=== PATIENT | male | born 1960 | race African-American/Black ===

== ENCOUNTER 2017-05-16 09:14 | Day surgery (SDC) | payer OTHER, SELFPAY ==
[~2017-05-16 09:14] MED LIST: Acetaminophen/HYDROcodone 325-5 MG Tab PO PRN; Bupivacaine 0.25%/EPINEPHrine 1:200,000 10 ML SDV INJECT ONE; Bupivacaine 0.25%/EPINEPHrine 1:200,000 10 ML SDV ONE; Lactated Ringers 1,000 ML IV SCH; Lidocaine 2% 5 ML SDV ONE; Midazolam 1 MG/ML 2 ML SDV ONE; Ondansetron 4 MG/2 ML SDV ONE; Propofol 200 MG/20 ML SDV ONE; ceFAZolin 1 GM in Premix Bag 1 BAG IV ONE; fentaNYL 100 MCG/2 ML SDV ONE
--- NOTE | 2017-05-16 09:34 | PCM.PREANE ---
Preanesthetic Assessment - Anesthesia/Transfusion/Family Hx Anesthesia History: Prior Anesthesia Without Reaction Family History of Anesthesia Reaction: No Transfusion History: No Prior Transfusion(s) Intubation History: Unknown - Review of Systems General: No Symptoms Pulmonary: No Symptoms Cardiovascular: No Symptoms Gastrointestinal: No Symptoms Neurological: No Symptoms Other: Reports: None - Physical Assessment NPO Status Date: 05/15/17 NPO Status Time: 14:00 O2 Sat by Pulse Oximetry: 99 Respiratory Rate: 16 Vital Signs: Last Vital Signs Temp 36.5 C 05/16/17 09:27 Pulse 96 05/16/17 09:27 Resp 16 05/16/17 09:27 BP 133/95 H 05/16/17 09:27 Pulse Ox 99 05/16/17 09:27 Height: 1.7 m Weight: 80.739 kg ASA Class: 2 Mental Status: Alert & Oriented x3 Airway Class: Mallampati = 2 Dentition: Reports: Normal Dentition Thyro-Mental Finger Breadths: 3 Mouth Opening Finger Breadths: 3 ROM/Head Extension: Full Lungs: Clear to Auscultation, Normal Respiratory Effort Cardiovascular: Regular Rate, Regular Rhythm - Allergies Allergies/Adverse Reactions: Allergies Allergy/AdvReac Type Severity Reaction Status Date / Time No Known Allergies Allergy Verified 05/14/17 09:25 - Blood Blood Available: No - Anesthesia Plan Pre-Op Medication Ordered: None - Acknowledgements Anesthesia Type Planned: General Anesthesia Pt an Appropriate Candidate for the Planned Anesthesia: Yes Alternatives and Risks of Anesthesia Discussed w Pt/Guardian: Yes Pt/Guardian Understands and Agrees with Anesthesia Plan: Yes PreAnesthesia Questionnaire - Past Health History Medical/Surgical History: Denies Medical/Surgical History Other HEENT History: uses glasses for reading Cardiovascular History: Reports: High Cholesterol, Hypertension, [place] ('06, most likely had PTCA of one coronary artery, told he has leaky valve on the left side ) Other Cardiovascular History: no stents placed, denies chest pain and SOB Respiratory History: Reports: None Gastrointestinal History: Reports: None Genitourinary History: Reports: None Musculoskeletal History: Reports: None Neurological History: Reports: Other (See Below) Other Neuro History: states "something is wrong with spine" Psychiatric History: Reports: None Endocrine/Metabolic History: Reports: None Hematologic History: Reports: None Immunologic History: Reports: None Oncologic (Cancer) History: Reports: None Dermatologic History: Reports: None - Past Surgical History Head Surgeries/Procedures: Reports: None - SUBSTANCE USE Smoking Status *Q: Never Smoker Days Per Week of Alcohol Use: 0 Recreational Drug Use History: No - HOME MEDS Home Medications: Home Meds Aspirin [Halfprin] 81 mg PO DAILY 06/22/14 [History] Rosuvastatin [Crestor] 20 mg PO DAILY 06/22/14 [History] Candesartan/HCTZ [Atacand HCT 16-12.5 MG] 1 tab PO DAILY 07/04/14 [History] - CURRENT (IN HOUSE) MEDS Current Meds: Current Medications Hydrocodone Bitart/Acetaminophen ([place] 325-5 Mg) 1 tab PO Q4H PRN PRN Reason: Pain Lactated Ringer's (Ringers, Lactated) 1,000 mls @ 125 mls/hr IV ASDIRECTED VALDEZ Last Admin: 05/16/17 09:29 Dose: 125 mls/hr Discontinued Medications Bupivacaine HCl/Epinephrine Bitart (Marcaine 0.25%/Epinephrine 1:200,000) 20 ml INJECT ONETIME ONE Stop: 05/16/17 09:01 Bupivacaine HCl/Epinephrine Bitart (Marcaine 0.25%/Epinephrine 1:200,000) Confirm Administered Dose 10 ml .ROUTE .STK-MED ONE Stop: 05/16/17 07:33 Fentanyl (Sublimaze) Confirm Administered Dose 100 mcg .ROUTE .STK-MED ONE Stop: 05/16/17 09:04 Cefazolin Sodium/Dextrose 1 gm (/ Premix) 25 mls @ 100 mls/hr IV ONETIME ONE Stop: 05/16/17 09:14 Lidocaine (Xylocaine-Mpf 2%) Confirm Administered Dose 5 ml .ROUTE .STK-MED ONE Stop: 05/16/17 09:03 Midazolam HCl (Versed 1 Mg/Ml) Confirm Administered Dose 2 mg .ROUTE .STK-MED ONE Stop: 05/16/17 09:04 Ondansetron HCl (Zofran) Confirm Administered Dose 4 mg .ROUTE .STK-MED ONE Stop: 05/16/17 09:03 Propofol (Diprivan 20 Ml) Confirm Administered Dose 200 mg .ROUTE .STK-MED ONE Stop: 05/16/17 09:04
[2017-05-16] MEDS ORDERED: Phenylephrine/Normal Saline 100 MCG/ML 10 ML Syringe ONE (10:03)
[2017-05-16] MEDS ORDERED: Ketorolac 30 MG/ML SDV ONE (10:27)
--- NOTE | 2017-05-16 11:06 | PCM.POSTAN ---
POST ANESTHESIA ASSESSMENT - MENTAL STATUS Mental Status: Alert - RESPIRATORY Respiratory Status: Respiratory Rate WNL - CARDIOVASCULAR CV Status: Pulse Rate WNL, Blood Pressure Stable - GASTROINTESTINAL GI Status: No Symptoms - PAIN Pain Score: 0 - POST OP HYDRATION Hydration Status: Adequate & Stable - OBSERVATIONS Free Text/Narrative:: no anesthesia problems
[2017-05-16 13:10] VITALS: BP 130/81
--- NOTE | 2017-05-19 09:09 | PCM.OPNOTE ---
- General Post-Op/Procedure Note Date of Surgery/Procedure: 05/16/17 Operative Procedure(s): left cubital tunnel release Pre Op Diagnosis: left cubital tunnel syndrome Post-Op Diagnosis: Same Anesthesia Technique: General LMA Primary Surgeon: Breanna Salazar Linseed Oil Temperer: Elyse Cannon Complications: None Condition: Good
--- NOTE | 2017-05-19 14:56 | OR ---
SURGEON: SYMONE FERNANDEZ MD DATE OF PROCEDURE: 05/16/2017 PREOPERATIVE DIAGNOSIS: Left cubital tunnel syndrome, severe POSTOPERATIVE DIAGNOSIS: Left cubital tunnel syndrome, severe. PROCEDURE: Left cubital tunnel release. INDICATIONS: Mr. Ricardo is a 56-year-old gentleman with left cubital tunnel syndrome that is quite severe. 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 He does have pain in this area. Risks and benefits of cubital tunnel release to hopefully relieve the pain and possibly reconstitute some of his sensation was discussed and he was in agreement to proceed. Risks were including, but not limited to, bleeding, infection, damage to underlying or overlying structures, possible need for future interventions, possible scarring, and possible lack of improvement. He understands and wishes to proceed. PROCEDURE IN DETAIL: After informed consent was obtained and placed on the chart, the patient was brought to the operating theater and laid in the supine position. After adequate general LMA anesthesia was obtained, the area was prepped and draped, and a time-out was completed to confirm side and site. Attention was then paid to dissection of the left cubital tunnel incision. A #15 blade was used to dissect through the skin and then spreading through the subcutaneous tissues with the Littler scissors. The nerve was located just proximal to the cubital tunnel and then dissection was carried to allow release from the cubital tunnel. There was significant compression here and once adequately released, meticulous hemostasis was obtained. Dissection was carried proximally up into the intramuscular septum and distally into the flexor carpi ulnaris compression site. Once adequately released, a finger was passed distally and proximally to ensure no compression on the nerve. Minimal neurolysis was completed over areas of significant scar tissue. The nerve was sitting healthy without any signs of compression along its entire length in the cubital tunnel upon completion. Once hemostasis was obtained, the wound was closed with deep 4-0 Monocryl stitches and a running 4-0 subcuticular for the skin. It was dressed with Steri-Strips. The area was then dressed with fluffs and Ulises wrap. The patient tolerated the procedure well and all counts, needles were correct at the end of the case. FOLLOWUP INSTRUCTIONS: The patient will see us in clinic in approximately 10 days or sooner if any problems, questions, or concerns. He was given a prescription for pain control. HEGGTHE / MODL /[id number]
== END 2017-05-16 13:05 | disposition home or self-care (01) ==
LOC: MW.SDS 09:14
PROVIDERS: ATTEND Plastic Surgery
PROC: 01N40ZZ Release Ulnar Nerve, Open Approach (ICD-10-PCS; principal; 2017-05-16)
DX: G56.22 Lesion of ulnar nerve, left upper limb (principal); I25.10 Atherosclerotic heart disease of native coronary artery without angina pectoris; I10 Essential (primary) hypertension; I25.2 Old myocardial infarction; E78.00 Pure hypercholesterolemia, unspecified; Z79.82 Long term (current) use of aspirin; Z79.899 Other long term (current) drug therapy
CPT/HCPCS: 64718; J1885; J2250; J2405; J3010; J7120; 01710; J2704

== ENCOUNTER 2017-10-01 08:58 | Emergency (ER) | payer OTHER, SELFPAY ==
[2017-10-01 09:10] VITALS: BP 140/91
--- NOTE | 2017-10-01 09:50 | EDM.PDOC ---
ED HPI GENERAL MEDICAL PROBLEM - General Chief Complaint: Gastrointestinal Problem Stated Complaint: BLOODY STOOL Time Seen by Provider: 10/01/17 09:26 - History of Present Illness INITIAL COMMENTS - FREE TEXT/NARRATIVE: HISTORY AND PHYSICAL: History of present illness: Patient 56-year-old black male presents with concern of intermittent rectal bleeding primarily when he wipes since May. He denies any known bleeding diathesis he denies any significant abdominal pain denies history of diverticular disease he denies any fever chills nausea vomiting or other concern Review of systems: As per history of present illness and below otherwise all systems reviewed and negative. Past medical history: As per history of present illness and as reviewed below otherwise noncontributory. Surgical history: As per history of present illness and as reviewed below otherwise noncontributory. Social history: No reported history of drug or alcohol abuse. Family history: As per history of present illness and as reviewed below otherwise noncontributory. Physical exam: HEENT: Atraumatic, normocephalic, pupils reactive, negative for conjunctival pallor or scleral icterus, mucous membranes moist, throat clear, neck supple, nontender, trachea midline. Lungs: Clear to auscultation, breath sounds equal bilaterally, chest nontender. Heart: S1S2, regular, negative for clicks, rubs, or JVD. Abdomen: Soft, nondistended, nontender. Negative for masses or hepatosplenomegaly. Negative for costovertebral tenderness. Pelvis: Stable nontender. Genitourinary: Deferred. Rectal: Deferred. Extremities: Atraumatic, negative for cords or calf pain. Neurovascular unremarkable. Neuro: Awake, alert, oriented. Cranial nerves II through XII unremarkable. Cerebellum unremarkable. Motor and sensory unremarkable throughout. Exam nonfocal. Diagnostics: CBC CMP PT/INR CT abdomen and pelvis Therapeutics: None Impression: #1 history of lower GI bleeding Definitive disposition and diagnosis as appropriate pending reevaluation and review of above. - Related Data Allergies Allergy/AdvReac Type Severity Reaction Status Date / Time No Known Allergies Allergy Verified 10/01/17 09:06 Home Meds: Home Meds Aspirin [Halfprin] 81 mg PO DAILY 06/22/14 [History] Rosuvastatin [Crestor] 20 mg PO BEDTIME 06/22/14 [History] Candesartan/HCTZ [Atacand HCT 16-12.5 MG] 1 tab PO DAILY 07/04/14 [History] Past Medical History - Past Health History Medical/Surgical History: Denies Medical/Surgical History HEENT History: Reports: Impaired Vision Other HEENT History: uses glasses for reading Cardiovascular History: Reports: High Cholesterol, Hypertension, [place] Other Cardiovascular History: Had [place] back in 2005. Pt report high blood pressure which is controlled with medication Respiratory History: Reports: None Gastrointestinal History: Reports: None Genitourinary History: Reports: None Musculoskeletal History: Reports: None Neurological History: Reports: Other (See Below) Other Neuro History: states "something is wrong with spine" Psychiatric History: Reports: None Endocrine/Metabolic History: Reports: None Hematologic History: Reports: None Immunologic History: Reports: None Oncologic (Cancer) History: Reports: None Dermatologic History: - Past Surgical History Head Surgeries/Procedures: Reports: None Musculoskeletal Surgical History: Reports: Other (See Below) Other Musculoskeletal Surgeries/Procedures:: nerve sx on left forearm Social & Family History - Family History Family Medical History: Noncontributory - Tobacco Use Smoking Status *Q: Never Smoker - Caffeine Use Caffeine Use: Reports: Coffee, Tea - Alcohol Use Days Per Week of Alcohol Use: 0 - Recreational Drug Use Recreational Drug Use: No Drug Use in Last 12 Months: No ED ROS GENERAL - Review of Systems Review Of Systems: ROS reveals no pertinent complaints other than HPI. ED EXAM, GENERAL - Physical Exam Exam: See Below (See dictation) Course - Vital Signs Last Recorded V/S: Last Vital Signs Temp 36.5 C 10/01/17 08:58 Pulse 80 10/01/17 08:58 Resp 18 10/01/17 08:58 BP 140/91 H 10/01/17 08:58 Pulse Ox 100 10/01/17 08:58 - Orders/Labs/Meds Labs: Laboratory Tests 10/01/17 10/01/17 10/01/17 Range/Units 09:31 09:31 09:31 WBC 5.04 (4.0-11.0) K/uL RBC 4.60 (4.50-5.90) M/uL Hgb 13.6 (13.0-17.0) g/dL Hct 40.7 (38.0-50.0) % MCV 88.5 (80.0-98.0) fL MCH 29.6 (27.0-32.0) pg MCHC 33.4 (31.0-37.0) g/dL RDW Std Deviation 40.3 (28.0-62.0) fl RDW Coeff of Mare 13 (11.0-15.0) % Plt Count 198 (150-400) K/uL MPV 11.40 (7.40-12.00) fL Neut % (Auto) 25.0 L (48.0-80.0) % Lymph % (Auto) 61.5 H (16.0-40.0) % [place] % (Auto) 10.9 (0.0-15.0) % Eos % (Auto) 1.6 (0.0-7.0) % Baso % (Auto) 1.0 (0.0-1.5) % Neut # (Auto) 1.3 L (1.4-5.7) K/uL Lymph # (Auto) 3.1 H (0.6-2.4) K/uL [place] # (Auto) 0.6 (0.0-0.8) K/uL Eos # (Auto) 0.1 (0.0-0.7) K/uL Baso # (Auto) 0.1 (0.0-0.1) K/uL Nucleated RBC % 0.0 /100WBC Nucleated RBCs # 0 K/uL INR 1.00 (0.86-1.11) Sodium 136 (136-146) mmol/L Potassium 3.8 (3.5-5.1) mmol/L Chloride 100 (98-110) mmol/L Carbon Dioxide 27 (21-31) mmol/L BUN 18 (6.0-23.0) mg/dL Creatinine 1.2 (0.6-1.5) mg/dL Est Cr Clr Drug Dosing 63.50 mL/min Estimated GFR (MDRD) > 60.0 ml/min Glucose 95 (60-110) mg/dL Calcium 9.2 (8.8-10.8) mg/dL Total Bilirubin 0.9 (0.1-1.5) mg/dL AST 19 (5-40) IU/L ALT 14 (8-54) IU/L Alkaline Phosphatase 74 (40-150) Total Protein 7.5 (6.0-8.0) g/dL Albumin 4.4 (3.5-5.0) g/dL Globulin 3.1 (2.0-3.5) g/dL Albumin/Globulin Ratio 1.4 (1.3-2.8) Departure - Departure Time of Disposition: 10:17 Disposition: Home, Self-Care 01 Condition: Good Clinical Impression: Diverticulosis - Discharge Information Referrals: Jett Bolanos MD [Primary Care Provider] - Forms: ED Department Discharge Additional Instructions: The following information is given to patients seen in the emergency department who are being discharged to home. This information is to outline your options for follow-up care. We provide all patients seen in our emergency department with a follow-up referral. The need for follow-up, as well as the timing and circumstances, are variable depending upon the specifics of your emergency department visit. If you don't have a primary care physician on staff, we will provide you with a referral. We always advise you to contact your personal physician following an emergency department visit to inform them of the circumstance of the visit and for follow-up with them and/or the need for any referrals to a consulting specialist. The emergency department will also refer you to a specialist when appropriate. This referral assures that you have the opportunity for followup care with a specialist. All of these measure are taken in an effort to provide you with optimal care, which includes your followup. Under all circumstances we always encourage you to contact your private physician who remains a resource for coordinating your care. When calling for followup care, please make the office aware that this follow-up is from your recent emergency room visit. If for any reason you are refused follow-up, please contact the [facility] emergency department at and asked to speak to the emergency department charge nurse. [facility] - General Surgery Professional Building [address] [place] [address], [address] [place] [address] Follow-up primary medical doctor 1-2 days call to schedule appointment with general surgery above diet considerations as discussed return as needed as discussed
--- NOTE | 2017-10-01 09:59 | CT ---
CT of the abdomen and pelvis without contrast. HISTORY: Pain TECHNIQUE: Axial CT images were obtained of the abdomen and pelvis without contrast. Coronal and sagi ttal reconstructions obtained. FINDINGS: The lung bases are clear, no pleural effusion. The liver, spleen, adrenal glands, and pancreas appear unremarkable for noncontrast examination. The gallbladder appears normal. There is no bulky retroperitoneal lymphadenopathy. No abdominal ascites. There are no calcifications noted within the kidneys or along the courses of the ureters bilaterally. Right peripelvic cysts noted. The large and small bowel are normal in caliber without evidence of obstruction. The appendix appears normal. Mild diverticulosis without evidence of diverticulitis. There is no bulky pelvic lymphadenop athy. No free fluid. No free air. The urinary bladder appears normal. The visualized osseous structures appear normal. Anterior bridging osteophytes noted within the SI chito ints. IMPRESSION: 1. No acute findings within the abdomen or pelvis. 2. Mild diverticulosis without evidence of diverticulitis.
[2017-10-01 10:02] LABS: CHLORIDE,CL 100 mmol/L (98-110); SODIUM,NA 136 mmol/L (136-146)
== END 2017-10-01 10:28 | disposition home or self-care (01) ==
LOC: MW.ED 08:58
DX: K57.90 Diverticulosis of intestine, part unspecified, without perforation or abscess without bleeding (principal); I10 Essential (primary) hypertension; E78.00 Pure hypercholesterolemia, unspecified; Z79.82 Long term (current) use of aspirin; Z79.899 Other long term (current) drug therapy
CPT/HCPCS: 36415; 74176; 74176-26; 80053; 85025; 85610; 99284; 99285-25

== ENCOUNTER 2017-11-04 08:06 | Day surgery (SDC) | payer OTHER ==
[~2017-11-04 08:06] MED LIST changes: -Acetaminophen/HYDROcodone 325-5 MG Tab PO PRN; -Bupivacaine 0.25%/EPINEPHrine 1:200,000 10 ML SDV INJECT ONE; -Bupivacaine 0.25%/EPINEPHrine 1:200,000 10 ML SDV ONE; -Lidocaine 2% 5 ML SDV ONE; -Ondansetron 4 MG/2 ML SDV ONE; -ceFAZolin 1 GM in Premix Bag 1 BAG IV ONE
--- NOTE | 2017-11-04 08:52 | PCM.PREANE ---
Preanesthetic Assessment - Anesthesia/Transfusion/Family Hx Anesthesia History: Prior Anesthesia Without Reaction Family History of Anesthesia Reaction: No Transfusion History: No Prior Transfusion(s) Intubation History: Unknown - Review of Systems General: No Symptoms Pulmonary: No Symptoms Cardiovascular: No Symptoms Gastrointestinal: No Symptoms Neurological: No Symptoms Other: Reports: None - Physical Assessment NPO Status Date: 11/03/17 O2 Sat by Pulse Oximetry: 99 Respiratory Rate: 16 Vital Signs: Last Vital Signs Temp 36.7 C 11/04/17 08:27 Pulse 102 H 11/04/17 08:27 Resp 16 11/04/17 08:27 BP 140/89 11/04/17 08:27 Pulse Ox 99 11/04/17 08:27 Height: 1.7 m Weight: 84.368 kg ASA Class: 2 Mental Status: Alert & Oriented x3 Airway Class: Mallampati = 1 Dentition: Reports: Normal Dentition ROM/Head Extension: Full Lungs: Clear to Auscultation, Normal Respiratory Effort Cardiovascular: Regular Rate, Regular Rhythm - Allergies Allergies/Adverse Reactions: Allergies Allergy/AdvReac Type Severity Reaction Status Date / Time No Known Allergies Allergy Verified 10/30/17 09:41 - Anesthesia Plan Pre-Op Medication Ordered: None - Acknowledgements Anesthesia Type Planned: MAC Pt an Appropriate Candidate for the Planned Anesthesia: Yes Alternatives and Risks of Anesthesia Discussed w Pt/Guardian: Yes Pt/Guardian Understands and Agrees with Anesthesia Plan: Yes PreAnesthesia Questionnaire - Past Health History Medical/Surgical History: Denies Medical/Surgical History HEENT History: Reports: Impaired Vision Other HEENT History: uses glasses for reading Cardiovascular History: Reports: CAD, High Cholesterol, Hypertension, [place] Other Cardiovascular History: Had [place] back in 2005. Pt report high blood pressure which is controlled with medication Respiratory History: Reports: None Gastrointestinal History: Reports: None Genitourinary History: Reports: None Musculoskeletal History: Reports: None Neurological History: Reports: Other (See Below) Other Neuro History: states "something is wrong with spine" Psychiatric History: Reports: None Endocrine/Metabolic History: Reports: None Hematologic History: Reports: None Immunologic History: Reports: None Oncologic (Cancer) History: Reports: None Dermatologic History: - Past Surgical History Head Surgeries/Procedures: Reports: None Musculoskeletal Surgical History: Reports: Other (See Below) Other Musculoskeletal Surgeries/Procedures:: elbow surgery - SUBSTANCE USE Smoking Status *Q: Never Smoker Days Per Week of Alcohol Use: 0 Recreational Drug Use History: No - HOME MEDS Home Medications: Home Meds Aspirin [Halfprin] 81 mg PO DAILY 06/22/14 [History] Rosuvastatin [Crestor] 40 mg PO BEDTIME 06/22/14 [History] Losartan/Hydrochlorothiazide [Losartan-HCTZ 50-12.5 MG] 1 tab PO DAILY 10/30/17 [History] Nitroglycerin 1 tab SL ASDIRECTED PRN 10/30/17 [History] - CURRENT (IN HOUSE) MEDS Current Meds: Current Medications Lactated Ringer's (Ringers, Lactated) 1,000 mls @ 125 mls/hr IV ASDIRECTED VALDEZ Last Admin: 11/04/17 08:29 Dose: 125 mls/hr Discontinued Medications Fentanyl (Sublimaze) Confirm Administered Dose 100 mcg .ROUTE .STK-MED ONE Stop: 11/04/17 07:18 Lidocaine HCl (Xylocaine-Mpf 1%) Confirm Administered Dose 5 ml .ROUTE .STK-MED ONE Stop: 11/04/17 07:18 Midazolam HCl (Versed 1 Mg/Ml) Confirm Administered Dose 2 mg .ROUTE .STK-MED ONE Stop: 11/04/17 07:17 Propofol (Diprivan 20 Ml) Confirm Administered Dose 200 mg .ROUTE .STK-MED ONE Stop: 11/04/17 07:17
--- NOTE | 2017-11-04 09:57 | PCM.OPNOTE ---
- General Post-Op/Procedure Note Date of Surgery/Procedure: 11/04/17 Operative Procedure(s): colonoscopy Findings: see dict [id number] Pre Op Diagnosis: BRBPR Post-Op Diagnosis: hemorrhoid Anesthesia Technique: Moderate Sedation Primary Surgeon: Varghese Ballard Complications: None Condition: Good
--- NOTE | 2017-11-04 10:17 | PCM.POSTAN ---
POST ANESTHESIA ASSESSMENT - MENTAL STATUS Mental Status: Alert, Oriented - RESPIRATORY Respiratory Status: Respiratory Rate WNL, Airway Patent, O2 Saturation Stable - CARDIOVASCULAR CV Status: Pulse Rate WNL, Blood Pressure Stable - GASTROINTESTINAL GI Status: No Symptoms - POST OP HYDRATION Hydration Status: Adequate & Stable
--- NOTE | 2017-11-04 10:17 | PCM48HPAN ---
Post Anesthesia Note - EVALUATION WITHIN 48HRS OF ANESTHETIC Vital Signs in Normal Range: Yes Patient Participated in Evaluation: Yes Respiratory Function Stable: Yes Airway Patent: Yes Cardiovascular Function Stable: Yes Hydration Status Stable: Yes Pain Control Satisfactory: Yes Nausea and Vomiting Control Satisfactory: Yes Mental Status Recovered: Yes
--- NOTE | 2017-11-04 11:01 | OR ---
SURGEON: Varghese Ballard MD DATE OF PROCEDURE: 11/04/2017 PREOPERATIVE DIAGNOSIS: Bright red blood per rectum. POSTOPERATIVE DIAGNOSIS: Hemorrhoids. PROCEDURE PERFORMED: Colonoscopy. COMPLICATIONS: None. FINDINGS: 1. The patient is easily sedated with DRAWER WAXER and Diprivan. The patient is soundly snoring. 2. The patient's bowel prep is excellent. No semi-formed stool, and very little liquid stool. The patient's colon is rather straight forward. Cecum indicated by ileocecal fold, one-to-one indentation, light emittance. Appendiceal orifice is not observed. Mucosa examined upon scope pulling out. The patient does not have diverticulosis, polyp, mass, growth, inflammation, stricture, ulceration, bleeding, none of those. The patient has some internal hemorrhoids and even when the colon go in and out look like there is a little bit of very minimal abrasion, almost to bleeding. The patient does not have external hemorrhoids. The patient would benefit from repeat colonoscopy 10 years from today or if clinically indicated otherwise. PROCEDURE IN DETAIL: The patient was taken to the endoscopy room. A time out was called, patient identified, and procedure identified. Diprivan was then administrated. Patient went from awake to sleep, hearing doctor talking or door closing is normal. Perineum inspection and digital examination were then performed. A well- lubricated colonoscope was gently inserted through the rectum, advanced past the rectosigmoid junction, the descending colon, splenic flexure, transverse colon, hepatic flexure, ascending colon, arrived to the cecum. Cecum was identified as dictated in the finding. Then the scope was carefully withdrawn while attention was paid to the mucosal surface for any abnormality. Air will be sucked out during the scope withdrawal. At the rectum, retroflexed to examine any rectal diseases, fistula or hemorrhoids. Patient tolerated procedure well. There were no intraoperative complications, and Dr. Ballard was present throughout the whole procedure. KAREN / ELENI /[id number]
[2017-11-04 13:24] VITALS: BP 102/56
== END 2017-11-04 11:00 | disposition home or self-care (01) ==
LOC: MW.SDS 08:06
PROVIDERS: ATTEND Surgery
DX: K64.8 Other hemorrhoids (principal); K62.5 Hemorrhage of anus and rectum; I25.10 Atherosclerotic heart disease of native coronary artery without angina pectoris; E78.00 Pure hypercholesterolemia, unspecified; I10 Essential (primary) hypertension; I25.2 Old myocardial infarction; Z79.82 Long term (current) use of aspirin; Z79.899 Other long term (current) drug therapy
CPT/HCPCS: 45378; J2250; J3010; J7120; J2704

== ENCOUNTER 2017-11-20 04:13 | Emergency (ER) | payer OTHER, SELFPAY ==
--- NOTE | 2017-11-20 04:47 | EDM.PDOC ---
ED HPI GENERAL MEDICAL PROBLEM - General Chief Complaint: General Stated Complaint: FLU Time Seen by Provider: 11/20/17 04:31 - History of Present Illness INITIAL COMMENTS - FREE TEXT/NARRATIVE: HISTORY AND PHYSICAL: History of present illness: The patient is a 57-year-old male who follows with Maricruz Lan in our clinic but has not seen her for these complaints and presents to the ED with a one- month history of dry nonproductive cough body aches malaise intermittent fevers. Patient has not had nausea vomiting or abdominal pain and he has had no chest pain or shortness of breath. The patient says that his symptoms improve and then they come back again and he presents early this morning due to the persistence of the symptoms. He is only taking [id number] DayQuil and NyQuil which he doesn't feel is helping. He feels fatigued area patient does have a cardiac history which he says occurred many years ago and he has not had any chest pain or cardiac problems since that time. He denies any pulmonary history. Patient did get his flu shot this year. Patient has a history of hypertension and hypercholesterolemia Review of systems: As per history of present illness and below otherwise all systems reviewed and negative. Past medical history: As per history of present illness and as reviewed below otherwise noncontributory. Surgical history: As per history of present illness and as reviewed below otherwise noncontributory. Social history: No reported history of drug or alcohol abuse. Family history: As per history of present illness and as reviewed below otherwise noncontributory. Physical exam: Gen.: Well-developed well-nourished man who is nontoxic and speaking clearly without breathlessness. Vital signs have been reviewed by me. HEENT: Atraumatic, normocephalic, pupils reactive, negative for conjunctival pallor or scleral icterus, mucous membranes moist, throat clear, neck supple, nontender, trachea midline. No cervical adenopathy or nuchal rigidity Lungs: Clear to auscultation, breath sounds equal bilaterally, chest nontender. No wheezing stridor or worker breathing Heart: S1S2, regular rate and rhythm no overt murmurs Abdomen: Soft, nondistended, nontender. NABS Pelvis: Deferred Genitourinary: Deferred. Rectal: Deferred. Extremities: Atraumatic, negative for cords or calf pain. Neurovascular unremarkable. Neuro: Awake, alert, oriented. Cranial nerves II through XII unremarkable. Cerebellum unremarkable. Motor and sensory unremarkable throughout. Exam nonfocal. Diagnostics: Chest x-ray CBC CMP influenza Therapeutics: Impression: Viral upper respiratory tract infection subacute Definitive disposition and diagnosis as appropriate pending reevaluation and review of above. head Pain Score (Numeric/FACES): 7 body Pain Score (Numeric/FACES): 7 - Related Data Allergies Allergy/AdvReac Type Severity Reaction Status Date / Time No Known Allergies Allergy Verified 11/20/17 04:29 Home Meds: Home Meds Aspirin [Halfprin] 81 mg PO DAILY 06/22/14 [History] Rosuvastatin [Crestor] 40 mg PO BEDTIME 06/22/14 [History] Losartan/Hydrochlorothiazide [Losartan-HCTZ 50-12.5 MG] 1 tab PO DAILY 10/30/17 [History] Nitroglycerin 1 tab SL ASDIRECTED PRN 10/30/17 [History] Past Medical History - Past Health History Medical/Surgical History: Denies Medical/Surgical History HEENT History: Reports: Impaired Vision Other HEENT History: uses glasses for reading Cardiovascular History: Reports: CAD, High Cholesterol, Hypertension, [place] Other Cardiovascular History: Had [place] back in 2005. Pt report high blood pressure which is controlled with medication Respiratory History: Reports: None Gastrointestinal History: Reports: None Genitourinary History: Reports: None Musculoskeletal History: Reports: None Neurological History: Reports: Other (See Below) Other Neuro History: states "something is wrong with spine" Psychiatric History: Reports: None Endocrine/Metabolic History: Reports: None Hematologic History: Reports: None Immunologic History: Reports: None Oncologic (Cancer) History: Reports: None Dermatologic History: - Past Surgical History Head Surgeries/Procedures: Reports: None Musculoskeletal Surgical History: Reports: Other (See Below) Other Musculoskeletal Surgeries/Procedures:: elbow surgery;left hand sx Social & Family History - Family History Family Medical History: Noncontributory - Tobacco Use Smoking Status *Q: Never Smoker - Caffeine Use Caffeine Use: Reports: Coffee, Tea - Alcohol Use Days Per Week of Alcohol Use: 0 - Recreational Drug Use Recreational Drug Use: No Drug Use in Last 12 Months: No ED ROS GENERAL - Review of Systems Review Of Systems: ROS reveals no pertinent complaints other than HPI. ED EXAM, GENERAL - Physical Exam Exam: See Below (See dictation) Course - Vital Signs Last Recorded V/S: Last Vital Signs Temp 36.6 C 11/20/17 04:13 Pulse 77 11/20/17 04:13 Resp 18 11/20/17 04:13 BP 151/100 H 11/20/17 04:13 Pulse Ox 98 11/20/17 04:13 - Orders/Labs/Meds Orders: Active Orders 24 hr Category Date Time Status Chest 2V [CR] Stat Exams 11/20/17 04:43 Taken Labs: Laboratory Tests 11/20/17 11/20/17 11/20/17 Range/Units 04:47 04:47 04:47 WBC 7.03 (4.0-11.0) K/uL RBC 4.46 L (4.50-5.90) M/uL Hgb 12.8 L (13.0-17.0) g/dL Hct 38.5 (38.0-50.0) % MCV 86.3 (80.0-98.0) fL MCH 28.7 (27.0-32.0) pg MCHC 33.2 (31.0-37.0) g/dL RDW Std Deviation 41.8 (28.0-62.0) fl RDW Coeff of Mare 13 (11.0-15.0) % Plt Count 207 (150-400) K/uL MPV 11.80 (7.40-12.00) fL Neut % (Auto) 36.1 L (48.0-80.0) % Lymph % (Auto) 55.0 H (16.0-40.0) % [place] % (Auto) 7.5 (0.0-15.0) % Eos % (Auto) 1.0 (0.0-7.0) % Baso % (Auto) 0.4 (0.0-1.5) % Neut # (Auto) 2.5 (1.4-5.7) K/uL Lymph # (Auto) 3.9 H (0.6-2.4) K/uL [place] # (Auto) 0.5 (0.0-0.8) K/uL Eos # (Auto) 0.1 (0.0-0.7) K/uL Baso # (Auto) 0.0 (0.0-0.1) K/uL Nucleated RBC % 0.0 /100WBC Nucleated RBCs # 0 K/uL Sodium 133 L (136-146) mmol/L Potassium 4.1 (3.5-5.1) mmol/L Chloride 100 (98-110) mmol/L Carbon Dioxide 26 (21-31) mmol/L BUN 11 (6.0-23.0) mg/dL Creatinine 1.1 (0.6-1.5) mg/dL Est Cr Clr Drug Dosing 68.44 mL/min Estimated GFR (MDRD) > 60.0 ml/min Glucose 92 (60-110) mg/dL Calcium 9.1 (8.8-10.8) mg/dL Total Bilirubin 0.8 (0.1-1.5) mg/dL AST 19 (5-40) IU/L ALT 15 (8-54) IU/L Alkaline Phosphatase 80 (40-150) Total Protein 7.2 (6.0-8.0) g/dL Albumin 4.3 (3.5-5.0) g/dL Globulin 2.9 (2.0-3.5) g/dL Albumin/Globulin Ratio 1.5 (1.3-2.8) Monoscreen NEGATIVE (NEG) Departure - Departure Time of Disposition: 05:27 Disposition: Home, Self-Care 01 Condition: Good Clinical Impression: Viral URI with cough - Discharge Information Referrals: PCP,None [Primary Care Provider] - Forms: ED Department Discharge Additional Instructions: The following information is given to patients seen in the emergency department who are being discharged to home. This information is to outline your options for follow-up care. We provide all patients seen in our emergency department with a follow-up referral. The need for follow-up, as well as the timing and circumstances, are variable depending upon the specifics of your emergency department visit. If you don't have a primary care physician on staff, we will provide you with a referral. We always advise you to contact your personal physician following an emergency department visit to inform them of the circumstance of the visit and for follow-up with them and/or the need for any referrals to a consulting specialist. The emergency department will also refer you to a specialist when appropriate. This referral assures that you have the opportunity for followup care with a specialist. All of these measure are taken in an effort to provide you with optimal care, which includes your followup. Under all circumstances we always encourage you to contact your private physician who remains a resource for coordinating your care. When calling for followup care, please make the office aware that this follow-up is from your recent emergency room visit. If for any reason you are refused follow-up, please contact the [facility] emergency department at and ask to speak to the emergency department charge nurse. [facility] Primary care- Internal Medicine and Family [address] [address] Please call the clinic this morning to schedule a follow-up with your provider and return to ER as needed and as discussed. Please rest push hydration and use [id number] medications as you choose to assist with your symptoms. Use cough medicine you have been prescribed only when you're at home to try to help with sleep and to control the cough. - My Orders Last 24 Hours: My Active Orders 11/20/17 04:43 Chest 2V [CR] Stat - Assessment/Plan Last 24 Hours: My Active Orders 11/20/17 04:43 Chest 2V [CR] Stat
[2017-11-20 05:12] LABS: CHLORIDE,CL 100 mmol/L (98-110); SODIUM,NA 133 mmol/L (136-146)
[2017-11-20 05:43] VITALS: BP 150/100
--- NOTE | 2017-11-20 10:53 | CR ---
EXAM DATE: 11/20/17 PATIENT'S AGE: 57 Patient: ANGELO HUERTA Facility: [place], [place] Site . Site : 1960 Study: XRay Chest [id number]/8/2018 5:20:22 AM Ordering Physician: Layne Hayes Final Report: Indication: Cough. Shortness of breath Technique: Chest 2 views Comparison: 06/22/2014. Findings/Impression: Cardiovascular and mediastinum: Normal cardiac size. An unfolded aorta. Lungs and pleural spaces: Lungs are clear. No sign of infiltrate or mass. No sign of pleural effusion. No pneumothorax. Bones and soft tissues: An apparent small lucent focus in the proximal left humeral diaphysis. Correlate with additional views. Dictated by Red Garcia MD @ 11/20/2017 5:25:45 AM Dictated by: Red Garcia MD @ 11/20/2017 05:25:49 (Electronic Signature) Report Signed by Proxy. SANDEE
== END 2017-11-20 05:35 | disposition home or self-care (01) ==
LOC: MW.ED 04:13
DX: J06.9 Acute upper respiratory infection, unspecified (principal); I10 Essential (primary) hypertension; I25.10 Atherosclerotic heart disease of native coronary artery without angina pectoris; E78.00 Pure hypercholesterolemia, unspecified; Z79.82 Long term (current) use of aspirin; Z79.899 Other long term (current) drug therapy
CPT/HCPCS: 36415; 71046; 71046-26; 80053; 85025; 86308; 87804; 99283

== ENCOUNTER 2021-11-10 10:38 | Emergency (ER) | payer OTHER ==
[2021-11-10] MEDS ORDERED: Ondansetron 4 MG/2 ML SDV IVPUSH ONE (12:56)
[2021-11-10] MEDS ORDERED: Azithromycin 250 MG Tab PO ONE (12:56)
[2021-11-10 13:20] VITALS: BP 147/95; PULSE 81
== END 2021-11-10 13:20 | disposition home or self-care (01) ==
LOC: MW.ED 10:38
DX: U07.1 COVID-19 (principal); J40 Bronchitis, not specified as acute or chronic; I25.10 Atherosclerotic heart disease of native coronary artery without angina pectoris; E78.00 Pure hypercholesterolemia, unspecified; I10 Essential (primary) hypertension; I25.2 Old myocardial infarction; Z79.82 Long term (current) use of aspirin; Z79.899 Other long term (current) drug therapy
CPT/HCPCS: 71046; 87635; 87804; 93005; 99284; A9270; U0002